=== PATIENT | female | born 2000 | race Caucasian/White ===

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

== ENCOUNTER 2022-05-13 10:32 | Outpatient (REF) | payer MEDICAID, SELFPAY | END 2022-05-13 10:33 | disposition home or self-care (01) | LOC: LBN 10:32 | PROVIDERS: PCP Nurse Practitioner Family; Visit Provider Physician Assistant | DX: J02.9 Acute pharyngitis, unspecified (principal) | CPT/HCPCS: 87070 ==

== ENCOUNTER 2022-07-13 10:42 | Outpatient (REF) | payer MEDICAID, SELFPAY ==
[2022-07-14 13:59] LABS: Chlamydia Result Negative (Negative); GC Result Negative (Negative)
== END 2022-07-13 10:43 | disposition home or self-care (01) ==
LOC: LBN 10:42
PROVIDERS: PCP Nurse Practitioner Family; Visit Provider Nurse Practitioner Women's Health
DX: Z11.3 Encounter for screening for infections with a predominantly sexual mode of transmission (principal)
CPT/HCPCS: 87491; 87591

== ENCOUNTER 2023-03-29 14:12 | Emergency (ER) | payer MEDICAID, SELFPAY ==
[2023-03-29 14:25] VITALS: BP 129/64; PULSE 96; RESP 16; TEMP 37.8; O2SAT 98
[2023-03-29 15:24] VITALS: BP 102/71; PULSE 98; RESP 18; TEMP 37.1; O2SAT 98
--- NOTE | 2023-03-29 15:38 | ED.GENADUL_ITS ---
Discharge Plan Disposition Patient Disposition: Home Condition: Stable Discharge Details Clinical Impression: Nausea, vomiting and diarrhea Primary Care Provider: Sena Olmstead ED Provider: Dorothy Gibson Home Meds and New Rx's Prescriptions: New ondansetron 4 mg tablet,disintegrating 4 mg PO QID PRNQty: 10 0RF No Action Kyleena 17.5 mcg/24 hrs (5 yrs) 19.5 mg intrauterine device 1 device intrauterine ONCE Rx Instructions: as a single dose multivitamin 1 EACH capsule 1 ea PO DAILY Discharge Instructions Instructions: Acute Nausea and Vomiting (ED) Additional Instructions: Return to ED for worsening pain, migration of pain to right lower abdomen, high fevers, or intractable vomiting. Stand Alone Forms: Work Release Referrals: Sena Olmstead, PATENT LEATHER SORTER [Primary Care Provider] - 3 days Discharge Data Discharge Physician: Dorothy Gibson Medical Decision Making 22-year-old female presents for evaluation nausea, vomiting, diarrhea. On examination abdominal exam is benign. She does have sick contacts similar symptoms. Will check laboratory studies, hydrate with IV fluids, give IV Zofran. Labs unremarkable. Patient?s symptoms improved after ED medication. Able to tolerate p.o. I abdominal exam is non-acute and patient is in no distress. Do not feel that imaging is warranted at this time. Will discharge home. Patient to push fluids and advance diet as tolerated. Patient is to follow up with PMD. Patient understands that symptoms may worsen and the testing in the emergency department does not rule out the early stages of a possible surgical condition. Will return to ED for worsening pain, migration of pain to right lower abdomen, high fevers, or intractable vomiting. HPI General Date/Time Provider Initiated Documentation: 03/29/23 15:15 . HPI Narrative: 22-year-old female presents for evaluation of nausea, vomiting, diarrhea. Patient states that she felt well yesterday. She had [employer] food for dinner last night. She woke up around 6:30 in the morning and began having nausea, vomi ting, diarrhea. She has had multiple episodes throughout the day. She denies any abdominal pain. No fevers or chills. No cough or cold. No chest pain or shortness of breath. Last menstrual cycle was at the beginning of the month. She does not believe she is but states that there is a possibility. Denies any increased urinary frequency, dysuria, gross hematuria. Her significant other has similar symptoms. Related Data Home Medications Medication Instructions Recorded Confirmed multivitamin 1 ea PO DAILY 03/07/17 03/29/23 levonorgestrel 17.5 mcg/24 hrs 1 device intrauterine ONCE 04/13/20 03/29/23 (5yrs) 19.5mg intrauterine device (Kyleena) ondansetron 4 mg disintegrating 4 mg PO QID PRN #10 tabs 03/29/23 tablet Previous Rx's Medication Instructions Recorded ondansetron 4 mg disintegrating 4 mg PO QID PRN #10 tabs 03/29/23 tablet Allergies Allergy/AdvReac Type Severity Reaction Status Date / Time No Known Allergies Allergy Verified 03/29/23 15:33 General Stated Complaint: Nausea/Vomit/Diar MEERA: 4 Review of Systems Narrative: Remainder of review of systems otherwise negative septa in the HPI x 10. PFSH All Active Problems (Updated 03/29/23 @ 15:40 by Dorothy Gibson MD) Nausea, vomiting and diarrhea (Acute) IUD surveillance (Acute 04/14/20) Kyleena Chronic constipation (Acute) Annual physical exam (Acute) Idiopathic scoliosis (Chronic 01/15/13) Thoracic; 6 degrees Left Migraine (Chronic 01/10/17) Initiated POPs May 2018 Pediatric body mass index (BMI) of 85th percentile to less than 95th percentile for age (Chronic 04/13/17) Primary dysmenorrhea (Chronic 04/11/14) [facility] Treatment with progesterone only contraceptive because of HX of migraines. Routine child health exam (Chronic 01/15/13) Medical History Idiopathic scoliosis Primary dysmenorrhea Left ACL tear Surgical History Repair, ACL (03/13/17) left Family History Mother Healthy adult Grandfather Hearing loss Neoplasm MGF-liver/bone Grandmother Essential hypertension MGM Heart disease MGM- [place] Stroke MGM- stroke Social History Smoking/Tobacco Use Status: Former Tobacco Use Smoking risk assessment performed?: Yes Alcohol Intake: current Alcohol Intake frequency: holidays/special occasions only Drug use: Occasionally Substance use type: does not use and marijuana Adopted: No Caregiver/Support person: No Foster care: No Household members: other Details: college student- home on school breaks Housing: house Communication Needs: None Education Level: college Details: - college freshman Pets and animals: Yes Pets and animals: cat(s) Sexually active: Yes (hasn't gotten to control) Seatbelt use: always Helmet use: Yes Helmet use: always Water heater temp set <120 deg: Yes Fire extinguisher in home: Yes Carbon monox detector in home: Yes Additional Social history: unable to ask d/t lack of privacy Female Reproductive History Menstrual control method: progestin IUCD History History 0 Para Hx # Term Pregnancies Multiple births Hx # Pregnancies Ectopic pregnancies AB induced Hx Number of Living Children AB spontaneous Exam Narrative Exam Narrative: General: non-toxic, no respiratory distress, comfortable HEENT: normocephalic, atraumatic, lids and lashes normal, PERRL, EOMI, anicteric sclera, no conjunctival injection, moist oral mucosa Card: regular rate and rhythm, S1S2, no murmurs, rubs, or gallops Lungs: good air entry, clear to auscultation bilaterally. no wheezes, rales, rhonchi, or retractions Abd: soft, non-tender, non-distended, normal bowel sounds, no rebound or guarding, no peritoneal signs, no CVAT Musculoskeletal: full range of motion of arms and legs, no tenderness to palpation. no clubbing, cyanosis, or edema Neurologic: appropriate for age, strength normal Psych: alert and oriented Skin: no petechiae, no lesions, warm and dry Course Vital Signs Vital signs: Vital Signs Temperature 37.8 C H 03/29/23 14:25 Pulse 96 H 03/29/23 14:25 Respiratory Rate 16 03/29/23 14:25 Blood Pressure 129/64 03/29/23 14:25 Pulse Oximetry 98 03/29/23 14:25 Temperature 37.1 C 03/29/23 15:24 Temperature Source Skin 03/29/23 15:24 Pulse 98 H 03/29/23 15:24 Respiratory Rate 18 03/29/23 15:24 Respiratory Effort Normal 03/29/23 15:32 Blood Pressure 102/71 03/29/23 15:24 Pulse Oximetry 98 03/29/23 15:24 Oxygen Delivery Method Room Air 03/29/23 15:24 Oxygen Flow Rate 0 03/29/23 15:24
[2023-03-29] MEDS: Normal Saline 1,000 ML 1000 ML IV (15:39)
[2023-03-29] MEDS: Ondansetron 4 MG/2 ML VIAL IVP (15:40)
[2023-03-29 15:41] VITALS: BP 102/71; PULSE 98; RESP 18; TEMP 37.1; O2SAT 98
[2023-03-29 15:42] LABS: Abs Immature Grans 0.03 10^3/uL (0.0-0.06); Absolute Basophil Count 0.03 10^3/uL (0.0-0.2); Absolute Eosinophil Count 0.02 10^3/uL (0.0-0.7); Absolute Lymphocyte Count 0.35 10^3/uL (1.2-3.4); Absolute Monocyte Count 0.23 10^3/uL (0.1-0.8); Absolute Neutrophil Count 10.26 10^3/uL (1.2-6.7); Basophils % 0.3; Eosinophils % 0.2; HCT 41.8 % (36.0-46.0); HGB 14.3 g/dL (11.2-15.7); Immature Grans % 0.3; Lymphocytes % 3.2; MCH 31.2 pg (27.0-33.0); MCHC 34.2 % (32.0-36.0); MCV 91 fL (80-95); MPV 10.1 fL (8.0-11.0); Monocytes % 2.1; Neutrophils % 93.9; Platelet Count 186 10^3/uL (130-400); RBC 4.58 10^6/uL (3.93-5.22); RDW 11.4 % (11.7-14.6); RDW-SD 38.4 fL; WBC 10.93 10^3/uL (4.4-10.8)
[2023-03-29 15:57] LABS: ALT 22 U/L (14-59); AST 14 U/L (15-37); Albumin 4.2 g/dL (3.4-5.0); Alkaline Phosphatase 52 U/L (46-116); BUN 14 mg/dL (7-18); Bilirubin, Total 0.8 mg/dL (0.2-1.0); CREATININE 0.8 mg/dL (0.55-1.02); Calcium 8.9 mg/dL (8.5-10.1); Chloride 103 mmol/L (98-107); Estimated GFR 108.11 (mL/min/1.73m2); Glucose 115 mg/dL (74-106); Lipase 40 U/L (16-77); Potassium 3.8 mmol/L (3.5-5.1); Sodium 137 mmol/L (136-145); Total Protein 7.6 g/dL (6.4-8.2)
[2023-03-29 16:06] LABS: HCG Qual (Serum) Negative
[2023-03-29 16:26] VITALS: BP 121/82; PULSE 73; RESP 16; TEMP 36.9; O2SAT 98
== END 2023-03-29 16:29 | disposition home or self-care (01) ==
PROVIDERS: Registered Nurse Emergency; Emergency Provider Emergency Medicine Emergency Medical Services; PCP Nurse Practitioner Family
DX: R11.2 Nausea with vomiting, unspecified (principal); R52 Pain, unspecified; R53.83 Other fatigue; R19.7 Diarrhea, unspecified
CPT/HCPCS: 36415; 80053; 83690; 96361; 96374; 99284; 84703; 85025; J2405

== ENCOUNTER 2023-05-29 20:02 | Emergency (ER) | payer MEDICAID, SELFPAY ==
[2023-05-29 20:07] VITALS: BP 132/83; PULSE 86; RESP 17; TEMP 36.9; O2SAT 98
--- NOTE | 2023-05-29 20:16 | ED.GENADUL_ITS ---
HPI General Mode of arrival: ambulatory . Date/Time Provider Initiated Documentation: 05/29/23 20:03 . Limitations to Documentation: no limitations . Information obtained by: patient . History of Present Illness 22 year old F presents to the emergency department with the chief complaint of bloody bowel movements, described as moderate, Patient started experiencing this day(s) (5) and it has been intermittent. No relieving factors improve symptom(s), No exacerbating factors reported . Patient notes denies chest pain, fever/chills, nausea/vomiting and shortness of breath. Patient did receive the following treatments prior to arrival, none Related Data Home Medications Medication Instructions Recorded Confirmed multivitamin 1 ea PO DAILY 03/07/17 05/29/23 levonorgestrel 17.5 mcg/24 hrs 1 device intrauterine ONCE 04/13/20 05/29/23 (5yrs) 19.5mg intrauterine device (Kyleena) Allergies Allergy/AdvReac Type Severity Reaction Status Date / Time No Known Allergies Allergy Verified 03/29/23 15:33 General Stated Complaint: Abd Prob MEERA: 3 Review of Systems All systems reviewed & are unremarkable except as noted in HPI and below Constitutional Constitutional: Denies chills, Denies fever(s) and Denies weakness Cardiovascular Cardiovascular: Denies chest pain and Denies dyspnea Respiratory Respiratory: Denies cough and Denies dyspnea Gastrointestinal Gastrointestinal: Reports hematochezia, Denies nausea and Denies vomiting Musculoskeletal Musculoskeletal: Denies joint swelling Neurologic Neurologic: Denies weakness Exam Const General: no acute distress Orientation: alert HENDE Head: normal to inspection Ears: external ears normal General nose exam: external nose normal Mouth: moist mucous membranes Eyes General: appearance normal, both eyes and all related structures Neck Neck: normal visual inspection Resp Effort & Inspection: normal respiratory effort and able to speak in complete sentences Cardio Rate: regular rate GI Palpation: soft and nontender Skin General skin exam: no rashes or lesions noted Neuro General: patient alert and patient oriented x3 Extrem General: normal to inspection Psych Mental Status: mental status grossly normal Course Vital Signs Vital signs: Vital Signs Temperature 36.9 C 05/29/23 20:07 Pulse 86 05/29/23 20:07 Respiratory Rate 17 05/29/23 20:07 Blood Pressure 132/83 05/29/23 20:07 Pulse Oximetry 98 05/29/23 20:07 Temperature 36.9 C 05/29/23 20:07 Temperature Source Temporal Artery Scan 05/29/23 20:07 Pulse 86 05/29/23 20:07 Respiratory Rate 17 05/29/23 20:07 Blood Pressure 132/83 05/29/23 20:07 Blood Pressure Position Sitting 05/29/23 20:07 Pulse Oximetry 98 05/29/23 20:07 Oxygen Delivery Method Room Air 05/29/23 20:07 Oxygen Flow Rate 0 05/29/23 20:07 Medical Decision Making 22-year-old female with no chronic medical problems, comes in with 5 days of intermittent bright red blood per rectum. She states she is otherwise been feeling well though has had some intermittent lower abdominal cramping. She denies fevers, vomiting, family history of any known gastrointestinal disorders. She denies any diarrhea and states no constipation. She is alert and oriented x 4 on arrival speaking clearly in no distress, she has no abdominal tenderness on exam. Suspect internal hemorrhoids versus possibly inflammatory bowel disease. Given lack of abdominal tenderness, and stable vital signs do not feel any imaging of her abdomen is indicated. Will check a CBC and reassess. CBC unremarkable, patient stable. No abdominal tenderness. I performed rectal exam with manufacturing engineering technician Sruthi Monteiro at bedside for welder setter electron beam machine, no external abnormalities on rectal exam no current blood here. Feel she is stable for discharge, will provide referral to see general surgery within a week to discuss possible colo noscopy. Return precautions given Differential Diagnosis Differential Diagnosis: Internal hemorrhoids, irritable bowel syndrome Quality:SDOH Health Related Social Needs: No Data to Display PFSH All Active Problems (Updated 05/29/23 @ 20:47 by Satya Perez MD) BRBPR (bright red blood per rectum) (Acute) IUD surveillance (Acute 04/14/20) Kyleena Chronic constipation (Acute) Annual physical exam (Acute) Idiopathic scoliosis (Chronic 01/15/13) Thoracic; 6 degrees Left Migraine (Chronic 01/10/17) Initiated POPs May 2018 Pediatric body mass index (BMI) of 85th percentile to less than 95th percentile for age (Chronic 04/13/17) Primary dysmenorrhea (Chronic 04/11/14) [facility] Treatment with progesterone only contraceptive because of HX of migraines. Routine child health exam (Chronic 01/15/13) Medical History Idiopathic scoliosis Primary dysmenorrhea Left ACL tear Surgical History Repair, ACL (03/13/17) left Family History Mother Healthy adult Grandfather Hearing loss Neoplasm MGF-liver/bone Grandmother Essential hypertension MGM Heart disease MGM- [place] Stroke MGM- stroke Social History Smoking/Tobacco Use Status: Former Tobacco Use Smoking risk assessment performed?: Yes Alcohol Intake: current Alcohol Intake frequency: holidays/special occasions only Drug use: Occasionally Substance use type: does not use and marijuana Adopted: No Caregiver/Support person: No Foster care: No Household members: other Details: college student- home on school breaks Housing: house Communication Needs: None Education Level: college Details: - college freshman Pets and animals: Yes Pets and animals: cat(s) Sexually active: Yes (hasn't gotten to control) Seatbelt use: always Helmet use: Yes Helmet use: always Water heater temp set <120 deg: Yes Fire extinguisher in home: Yes Carbon monox detector in home: Yes Do you feel safe at home: Yes Do you feel safe in your relationship?: Yes Additional Social history: unable to ask d/t lack of privacy Female Reproductive History Menstrual control method: progestin IUCD History History 0 Para Hx # Term Pregnancies Multiple births Hx # Pregnancies Ectopic pregnancies AB induced Hx Number of Living Children AB spontaneous Discharge Plan Disposition Patient Disposition: Home Condition: Stable Discharge Details Clinical Impression: BRBPR (bright red blood per rectum) Primary Care Provider: Sena Olmstead ED Provider: Sayta Perez Meds and New Rx's Prescriptions: Continued Kyleena 17.5 mcg/24 hrs (5 yrs) 19.5 mg intrauterine device 1 device intrauterine ONCE Rx Instructions: as a single dose multivitamin 1 EACH capsule 1 ea PO DAILY Discharge Instructions Additional Instructions: I have placed you on the follow-up list to see general surgery, you should be contacted with an appointment Your blood count today was normal, you likely have an internal hemorrhoid that is intermittently bleeding. If it continues you may need to have a colonoscopy with general surgery. If you have severe abdominal pain, shortness of breath, or feel more ill return to the emergency department for reexamination
[2023-05-29 20:47] VITALS: BP 132/83; PULSE 86; RESP 14; TEMP 36.9; O2SAT 98
[2023-05-29 20:53] LABS: HCT 37.7 % (36.0-46.0); HGB 12.7 g/dL (11.2-15.7); MCH 30.7 pg (27.0-33.0); MCHC 33.7 % (32.0-36.0); MCV 91 fL (80-95); MPV 9.6 fL (8.0-11.0); Platelet Count 222 10^3/uL (130-400); RBC 4.14 10^6/uL (3.93-5.22); RDW 11.4 % (11.7-14.6); RDW-SD 38.2 fL; WBC 7.57 10^3/uL (4.4-10.8)
[2023-05-29 21:07] VITALS: BP 130/78; PULSE 80; RESP 14; O2SAT 98
--- NOTE | 2023-05-30 04:40 | NUR.NOTE ---
Pt placed on care management referral list for bloody stools to be seen [facility] per LORNA Olmos.
== END 2023-05-29 21:12 | disposition home or self-care (01) ==
PROVIDERS: Emergency Provider Emergency Medicine; PCP Nurse Practitioner Family
DX: K62.5 Hemorrhage of anus and rectum (principal)
CPT/HCPCS: 36415; 85027; 99283

== ENCOUNTER 2023-06-01 10:54 | Outpatient (CLI) | payer MEDICAID, SELFPAY ==
[2023-06-01 11:43] LABS: C-Reactive Protein < 0.50 mg/dL (<or=0.5)
[2023-06-02 10:54] LABS: IgA 150 mg/dL (85-499); Interpretation (See Note); Tissue Transglutaminase IgA <4.0 CU (<20.0)
[2023-06-02 14:24] LABS: ANCA Interpretation Negative (Negative)
[2023-06-02 14:27] LABS: ANA Interpretation Negative (Negative)
== END 2023-06-01 10:55 | disposition home or self-care (01) ==
PROVIDERS: PCP Nurse Practitioner Family; Visit Provider Surgery
DX: K62.5 Hemorrhage of anus and rectum (principal); K59.09 Other constipation
CPT/HCPCS: 36415; 82784; 83516; 86255; 86038; 86140

== ENCOUNTER 2023-06-04 12:27 | Outpatient (REF) | payer MEDICAID, SELFPAY ==
[2023-06-07 18:31] LABS: Calprotectin <50.0 mcg/g
== END 2023-06-04 12:28 | disposition home or self-care (01) ==
LOC: LBN 12:27
PROVIDERS: PCP Nurse Practitioner Family; Visit Provider Surgery
DX: K59.09 Other constipation (principal); K62.5 Hemorrhage of anus and rectum; K92.1 Melena
CPT/HCPCS: 83993

== ENCOUNTER 2023-06-04 18:55 | Emergency (ER) | payer MEDICAID, SELFPAY ==
[2023-06-04 18:58] VITALS: BP 121/71; PULSE 88; RESP 15; TEMP 36.6; O2SAT 97
[2023-06-04 19:02] VITALS: BP 121/71; PULSE 88; RESP 15; TEMP 36.6; O2SAT 97
--- NOTE | 2023-06-04 19:03 | ED.GENADUL_ITS ---
HPI General Date/Time Provider Initiated Documentation: 06/04/23 19:02 . HPI Narrative: 22 year-old female presents to ED today by POV/ambulating with a chief complaint of bloody stool, generalized abdominal pain with onset 6 days ago, seen by general surgeon who recommended against colonoscopy, no mention of hemorrhoids. Quality described as generalized abdominal discomfort, denies past ABD surgical problems, no radiation to high fever, hematemesis, shortness of breath, endorses weakness. Severity is described as 7/10. Palliating factors include nothing specific attempted. Provoking factors include nothing specific. Patient not anticoagulated. Related Data Home Medications Medication Instructions Recorded Confirmed multivitamin 1 ea PO DAILY 03/07/17 06/04/23 levonorgestrel 17.5 mcg/24 hrs 1 device intrauterine ONCE 04/13/20 06/04/23 (5yrs) 19.5mg intrauterine device (Kyleena) Allergies Allergy/AdvReac Type Severity Reaction Status Date / Time No Known Allergies Allergy Verified 06/01/23 09:22 General Stated Complaint: Abd Prob MEERA: 3 Review of Systems All systems reviewed & are unremarkable except as noted in HPI and below Exam Narrative Exam Narrative: GENERAL APPEARANCE: Well-nourished, non-toxic, awake and alert, atraumatic, no acute distress. SKIN: Warm, pink, dry, intact, without rashes/lesions/ulcerations. HEAD: Normocephalic, atraumatic, normal hair distribution for gender/age. EYES: Pupils PERRLA, EOMs intact without nystagmus, normal conjunctiva, no exudates on lids/lashes. ENT: Nares patent, no circumoral cyanosis, no facial swelling NECK: Supple, trachea midline, painless cervical ROM. LUNGS/CHEST: Lungs CTA bilaterally- no rhonchi/rales/wheezes diffusely, non- labored respirations, normal A/P diameter, symmetrical expansion, no chest wall deformity HEART (CV/PV): Regular rate and rhythm without murmur, no peripheral edema, no JVD. ABDOMEN: Soft, non-distended, no guarding, epigastric and RLQ abdominal tenderness, no rebound tenderness/rovsing's, no CVA tenderness to percussion. MSK: Normal ROM, no swelling/deformity to bilateral UEs or LEs, moving all extremities without weakness, no cyanosis, spine midline without tenderness, normal curvature. NEURO: Mental Status AAOx4 - alert to person, place, time, events No facial droop, no forehead involvement. Motor: No focal weakness - strength 5/5 in bilateral UEs and LEs, proximal and distal, symmetric. Sensory: sensation intact to light touch globally. Gait normal: patient ambulated without ataxia into ED room. PSYCH: euthymic, cooperative, pleasant, appropriate speech Course Vital Signs Vital signs: Vital Signs Temperature 36.6 C 06/04/23 18:58 Pulse 88 06/04/23 18:58 Respiratory Rate 15 06/04/23 18:58 Blood Pressure 121/71 06/04/23 18:58 Pulse Oximetry 97 06/04/23 18:58 Temperature 36.6 C 06/04/23 18:58 Temperature Source Tympanic 06/04/23 18:58 Pulse 88 06/04/23 18:58 Respiratory Rate 15 06/04/23 18:58 Blood Pressure 121/71 06/04/23 18:58 Blood Pressure Position Sitting 06/04/23 18:58 Pulse Oximetry 97 06/04/23 18:58 Oxygen Delivery Method Room Air 06/04/23 18:58 Oxygen Flow Rate 0 06/04/23 18:58 Pain Level 7 06/04/23 18:58 Medical Decision Making This dictation utilizes [id number] dictation software and may contain unedited grammatical errors. 22 y/o F presents to ED today with a chief complaint of nausea/vomiting, diarrhea, intermittent bloody stools for the past 6 days, seen by General Surgery with negative hemorrhoid exam, not recommended for colonoscopy, having diffuse mild abdominal pain. Patients' medical history: chronic constipation. Family and social history: noncontributory. Pertinent exam findings / vital signs include epigastric and RLQ tenderness, no peritoneal signs, patient discussed ALIRIO- had recent would prefer not to repeat tonight if labs OK for significant anemia, stable nontoxic vitals, benign cardiopulmonary exam. Differential / pathologies of concern include gastroenteritis, GI bleeding, infectious diarrhea, appendicitis, biliary colic, pancreatitis. Diagnostic studies of: -CBC, CMP, Lactate & procalcitonin, Lipase, UA, CRP/ESR, Upreg, Mg++, CT ABD/Pelvis w Contrast. -CBC shows no leukocytosis, no anemia- do not suspect GI hemorrhage -CMP no major electrolyte abnormalities -UA no signs of infection -Upreg neg -Mg++ wnl -Lactate WNL, procalcitonin neg- do not suspect sepsis -lipase WNL -inflammatory markers neg, nonspecific -CT ABD/Pelvis shows cholelithiasis without concern for cholecystitis, shows possible infectious enteritis which fits with history Interventions of: -Trial of 3 days 500mg Azithromycin for infectious diarrhea, recommend colonoscopy if failure to improve. ED Course/Assessment/Plan: 22-year-old female presents with intermittent bright red blood per rectum with bowel movements and diarrhea for the past 6 days, has abdominal pain and nausea vomiting, this is consistent with a possible infectious diarrhea, reasonable to trial antibiotics for infectious diarrhea, she was seen by general surgery and had a rectal exam without concerning findings, if she fails to improve with empiric antibiotic treatment I recommend that she represent to surgery office for likely colonoscopy with her history of chronic constipation and now bright red blood per rectum, inflammatory markers are negative for inflammatory bowel disease, no findings to suggest Crohn's disease, patient was comfortable with this disposition and will return for any acute worsening. Findings not consistent with sepsis, inflammatory bowel disease, UTI, cholecystitis, pancreatitis, cholangitis, perforated viscus or diverticulitis with abscess or microperforation, GI hemorrhage. Disposition of Infectious Enteritis. Patient verbalized understanding of the plan and return to ED criteria and engaged in shared decision making. Medical Records Medical records reviewed: Yes I reviewed the patient's medical records. Imaging Data Radiologic Study: Attestation: I personally reviewed and interpreted this imaging study as follows: Imaging: CT Scan Radiologist's impression: Exam: CT Abdomen And Pelvis With Contrast Exam date and time: 06/04/2023 8:28 PM Age: 22 years old Clinical indication: Generalized; Patient HX: Diffuse abdominal pain, bloody stools TECHNIQUE: Imaging protocol: Computed tomography of the abdomen and pelvis with contrast. Radiation optimization: All CT scans at this facility use at least one of these dose optimization techniques: automated exposure control; mA and/or kV adjustment per patient size (includes targeted exams where dose is matched to clinical indication); or iterative reconstruction. Contrast material: OMNIPAQUE 350; Contrast volume: 100 ml; Contrast route: INTRAVENOUS (IV); COMPARISON: CR XR ABDOMEN FLAT UPRIGHT 06/25/2019 9:49 PM FINDINGS: Lungs: Lung bases are clear. Liver: Unremarkable. No mass. Gallbladder and bile ducts: Cholelithiasis. No obvious pericholecystic inflammatory stranding. No biliary dilation. Pancreas: Unremarkable. No ductal dilation. Spleen: Unremarkable. No splenomegaly. Adrenal glands: Normal. No mass. Kidneys and ureters: Symmetric renal enhancement without mass. No hydronephrosis. Ureters are normal in course and caliber. Stomach and bowel: Stomach is distended by low-attenuation material without focal gastric mural thickening. No evidence of bowel obstruction. There is mild scattered mural/fold thickening of the small bowel with increased prominence of the mesenteric vasculature. No focal colonic mural thickening. Appendix: No evidence of acute appendicitis. Intraperitoneal space: No free fluid in the abdomen or pelvis. No free air. Vasculature: No abdominal aortic aneurysm or evidence of dissection. Lymph nodes: No pathologically enlarged lymph nodes. Urinary bladder: Mild diffuse thickening of the bladder wall is nonspecific. Reproductive: IUD within the central uterus in expected location. Bones/joints: Unremarkable. No acute fracture. Soft tissues: No focal abnormality. IMPRESSION: 1. Mild scattered mural/fold thickening of the small bowel. Correlate with history/symptoms to suggest acute infectious versus inflammatory enteritis. 2. Cholelithiasis. 3. Mild diffuse thickening of the bladder wall may be related to incomplete distension versus acute cystitis. Correlate with urinalysis. Dictated and Authenticated by: Adryan Erickson MD. Ordering:DARCY Truong MD Lab Data Lab results reviewed: Yes I reviewed the patient's lab results. Labs: Laboratory Tests Range/Units 06/04/23 06/04/23 19:35 20:18 WBC (4.4-10.8) 10^3/uL 10.17 RBC (3.93-5.22) 10^6/uL 4.70 Hgb (11.2-15.7) g/dL 14.5 Hct (36.0-46.0) % 42.5 MCV (80-95) fL 90 MCH (27.0-33.0) pg 30.9 MCHC (32.0-36.0) % 34.1 RDW (11.7-14.6) % 11.2 L Plt Count (130-400) 10^3/uL 224 MPV (8.0-11.0) fL 9.9 Immature Gran % 0.3 Neutrophils % 76.8 Lymphocytes % 18.1 Monocytes % 3.7 Eosinophils % 0.7 Basophils % 0.4 Nucleated RBC % (0.0-0.3) % 0.0 Absolute Neutrophils (1.2-6.7) 10^3/uL 7.81 H Absolute Lymphocytes (1.2-3.4) 10^3/uL 1.84 Absolute Monocytes (0.1-0.8) 10^3/uL 0.38 Absolute Eosinophils (0.0-0.7) 10^3/uL 0.07 Absolute Basophils (0.0-0.2) 10^3/uL 0.04 ESR (0-20) mm/hr 4 PT (9.1-11.1) sec 10.8 INR (0.9-1.1) 1.1 APTT (23.6-32.8) sec 26.1 VBG Lactate (0.6-1.4) mmol/L 0.6 Sodium (136-145) mmol/L 142 Potassium (3.5-5.1) mmol/L 3.7 Chloride (98-107) mmol/L 105 Carbon Dioxide (21.0-32.0) mmol/L 26.2 Anion Gap (3-11) mmol/L 10.8 BUN (7-18) mg/dL 13 Creatinine (0.55-1.02) mg/dL 0.8 Est GFR (CKD-EPI 2020) (mL/min/1.73m2) 108.11 Glucose (74-106) mg/dL 97 Calcium (8.5-10.1) mg/dL 9.2 Magnesium (1.8-2.4) mg/dL 1.9 Total Bilirubin (0.2-1.0) mg/dL 0.5 Conjugated Bilirubin (0.0-0.2) mg/dL 0.1 AST (15-37) U/L 16 ALT (14-59) U/L 17 Alkaline Phosphatase (46-116) U/L 54 Troponin I (< or =60) ng/L < 50 C-Reactive Protein (<or=0.5) mg/dL < 0.50 Total Protein (6.4-8.2) g/dL 8.0 Albumin (3.4-5.0) g/dL 4.5 Lipase (16-77) U/L 40 Procalcitonin ng/mL < 0.1 Urine Color (Yellow) Yellow Urine Clarity (Clear) Clear Urine pH (5-8) 7.0 Ur Specific [place] (1.005-1.025) 1.020 Urine Protein (Neg-Trace) mg/dL Negative Urine Ketones (Negative) mg/dL Negative Urine Blood (Negative) Negative Urine Nitrite (Negative) Negative Urine Bilirubin (Negative) Negative Urine Urobilinogen (Up to 0.2) mg/dL 0.2 Ur Leukocyte Esterase (Negative) Negative Urine Glucose (Negative) mg/dL Negative Quality:SDOH Health Related Social Needs: No Data to Display PFSH All Active Problems (Updated 06/04/23 @ 21:49 by LORNA Keane) Infectious enteritis (Acute) Chronic idiopathic constipation (Acute) Bloody stool (Acute) BRBPR (bright red blood per rectum) (Acute) IUD surveillance (Acute 04/14/20) Kyleena Chronic constipation (Acute) Annual physical exam (Acute) Idiopathic scoliosis (Chronic 01/15/13) Thoracic; 6 degrees Left Migraine (Chronic 01/10/17) Initiated POPs May 2018 Pediatric body mass index (BMI) of 85th percentile to less than 95th percentile for age (Chronic 04/13/17) Primary dysmenorrhea (Chronic 04/11/14) [facility] Treatment with progesterone only contraceptive because of HX of migraines. Routine child health exam (Chronic 01/15/13) Medical History Idiopathic scoliosis Primary dysmenorrhea Left ACL tear Surgical History Repair, ACL (03/13/17) left Family History Mother Healthy adult Grandfather Hearing loss Neoplasm MGF-liver/bone Grandmother Essential hypertension MGM Heart disease MGM- [place] Stroke MGM- stroke Social History Smoking/Tobacco Use Status: Former Tobacco Use Smoking risk assessment performed?: Yes Alcohol Intake: current Alcohol Intake frequency: holidays/special occasions only Drug use: Occasionally Substance use type: does not use and marijuana Adopted: No Caregiver/Support person: No Foster care: No Household members: other Details: college student- home on school breaks Housing: house Communication Needs: None Education Level: college Details: - college freshman Pets and animals: Yes Pets and animals: cat(s) Sexually active: Yes (hasn't gotten to control) Seatbelt use: always Helmet use: Yes Helmet use: always Water heater temp set <120 deg: Yes Fire extinguisher in home: Yes Carbon monox detector in home: Yes Do you feel safe at home: Yes Do you feel safe in your relationship?: Yes Additional Social history: unable to ask d/t lack of privacy Female Reproductive History Menstrual control method: progestin IUCD History History 0 Para Hx # Term Pregnancies Multiple births Hx # Pregnancies Ectopic pregnancies AB induced Hx Number of Living Children AB spontaneous Discharge Plan Disposition Patient Disposition: Home Condition: Stable Discharge Details Clinical Impression: Infectious enteritis Primary Care Provider: Sena Olmstead ED Provider: Alexi Olmos Home Meds and New Rx's Prescriptions: Continued Kyleena 17.5 mcg/24 hrs (5 yrs) 19.5 mg intrauterine device 1 device intrauterine ONCE Rx Instructions: as a single dose multivitamin 1 EACH capsule 1 ea PO DAILY Discharge Instructions Instructions: Azithromycin (By mouth), Enteritis (ED) Additional Instructions: You were seen in the emergency department for your intermittent bloody stools with diarrhea, there is a mild sign on your CTA of your body reacting to a possible small bowel infection called enteritis. I think it is reasonable as this was been going on for some time now to try empiric antibiotics I am sending home with azithromycin for 3 days, take one of the 500 mg tablets once per day for the next 3 days. Everything else was reassuring for any autoimmune conditions of the abdomen, severe infection, sepsis all of this was negative on our workup and there was no acute emergent pathology seen on CT exam. Should this not cure your intermittent bloody stools and diarrhea I think you should receive a colonoscopy. Stand Alone Forms: Work Release Referrals: Sena Olmstead, [employer] TRUING INSPECTOR [Primary Care Provider] - Discharge Data Discharge Date/Time-TO BE ENTERED AT DEPARTURE: 06/04/23 22:09
--- NOTE | 2023-06-04 19:30 | DI.CT_ITS ---
Exam(s) CT ABDOMEN PELVIS W EXAM: CT ABDOMEN PELVIS W CLINICAL HISTORY: diffuse abdominal pain, bloody stools TECHNIQUE: Imaging Protocol: Axial computed tomography images with coronal and sagittal reformatted images were created and reviewed. CONTRAST MATERIAL: Intravenous: Omnipaque 350 Contrast volume:100 mL Oral: No COMPARISON: No exams were available for comparison FINDINGS: ABDOMEN: Lung Bases: Normal where visualized. Liver: Normal density. There is a tiny hypodensity in the caudal aspect of the right lobe of the live r. It is too small for further characterization. No suspicious hepatic lesions are seen. Portal, Superior Mesenteric, and Splenic Veins: Unremarkable. Gallbladder and Biliary Tract: Gallstone. No biliary ductal dilatation. Pancreas: Normal density, no abnormal calcifications or inflammatory process. Spleen: Normal. Adrenals: No masses seen. Kidneys: Normal size, contour and axis. No radiodense stones or obstructive uropathy. No masses seen. Abdominal Aorta: Abdominal portion non-dilated. Bowel: There are fluid-filled loops of small bowel and proximal colon which can be seen with a diarrh eal illness/enteritis. There is mild thickening of the wall of the distal stomach. There is a muriel l appendix. There is no evidence of bowel obstruction. Peritoneal Cavity: No ascites, collection or mesenteric inflammatory response. No free air. Lymph Nodes: Within normal limits. Bones: Within normal limits for the patient's age. Soft Tissues: Unremarkable. PELVIS: Bladder: There is mild diffuse thickening of the wall of the urinary bladder. Reproductive Organs: There is an IUD which appears in good position. Lymph Nodes: Within normal limits. Bones: Within normal limits for the patient's age. IMPRESSION: 1. Fluid-filled loops of small bowel and colon which can be seen with a diarrheal illness/enterocolit is. Please correlate clinically. 2. Mild diffuse thickening of the wall of the urinary bladder. This may be due to underdistention bu t cystitis cannot be excluded. 3. Question of mild thickening of the wall of the distal stomach. Gastritis cannot be excluded. 4. Cholelithiasis. No biliary ductal dilatation. RADIATION DOSE DELIVERED: 947.33mGy.cm Total DLP DATA REPOSITORY: All CT scans at this facility are submitted to the National Radiology Data Registry (NRDR) Dose Index Registry (DIR) with the [employer] (A[employer]). RADIATION OPTIMIZATION: All CT scans at this facility use at least one of these dose optimization te chniques: automated exposure control; mA and/or kV adjustment per patient size (includes targeted exa ms where dose is matched to clinical indication); or iterative reconstruction.
[2023-06-04] MEDS: Normal Saline 1,000 ML 1000 ML IV (19:56)
[2023-06-04] MEDS: Ondansetron 4 MG/2 ML VIAL IVP (19:57)
[2023-06-04 20:00] LABS: Abs Immature Grans 0.03 10^3/uL (0.0-0.06); Absolute Basophil Count 0.04 10^3/uL (0.0-0.2); Absolute Eosinophil Count 0.07 10^3/uL (0.0-0.7); Absolute Lymphocyte Count 1.84 10^3/uL (1.2-3.4); Absolute Monocyte Count 0.38 10^3/uL (0.1-0.8); Absolute Neutrophil Count 7.81 10^3/uL (1.2-6.7); Basophils % 0.4; Eosinophils % 0.7; HCT 42.5 % (36.0-46.0); HGB 14.5 g/dL (11.2-15.7); Immature Grans % 0.3; Lymphocytes % 18.1; MCH 30.9 pg (27.0-33.0); MCHC 34.1 % (32.0-36.0); MCV 90 fL (80-95); MPV 9.9 fL (8.0-11.0); Monocytes % 3.7; Neutrophils % 76.8; Platelet Count 224 10^3/uL (130-400); RDW 11.2 % (11.7-14.6); RDW-SD 37.4 fL; WBC 10.17 10^3/uL (4.4-10.8)
[2023-06-04 20:02] LABS: Lactate 0.6 mmol/L (0.6-1.4)
[2023-06-04 20:04] LABS: ESR 4 mm/hr (0-20)
[2023-06-04 20:23] LABS: ALT 17 U/L (14-59); AST 16 U/L (15-37); Albumin 4.5 g/dL (3.4-5.0); Alkaline Phosphatase 54 U/L (46-116); Anion Gap 10.8 mmol/L (3-11); BUN 13 mg/dL (7-18); Bilirubin, Direct 0.1 mg/dL (0.0-0.2); Bilirubin, Total 0.5 mg/dL (0.2-1.0); CO2 26.2 mmol/L (21.0-32.0); CREATININE 0.8 mg/dL (0.55-1.02); Calcium 9.2 mg/dL (8.5-10.1); Chloride 105 mmol/L (98-107); Estimated GFR 108.11 (mL/min/1.73m2); Glucose 97 mg/dL (74-106); Lipase 40 U/L (16-77); Magnesium 1.9 mg/dL (1.8-2.4); Potassium 3.7 mmol/L (3.5-5.1); Sodium 142 mmol/L (136-145)
[2023-06-04] MEDS: Omnipaque 350 MG/ML 100 ML BTL IJ (20:24)
[2023-06-04 20:25] LABS: C-Reactive Protein < 0.50 mg/dL (<or=0.5); Troponin I < 50 ng/L (< or =60)
[2023-06-04] MEDS: Normal Saline - Diluent 50 ML VIAL IJ (20:25)
[2023-06-04] MEDS: Normal Saline Flush 10 ML SYR IVP (20:26)
[2023-06-04 20:31] LABS: INR 1.1 (0.9-1.1); PTT Activated 26.1 sec (23.6-32.8); Prothrombin Time 10.8 sec (9.1-11.1)
[2023-06-04 20:42] LABS: Procalcitonin < 0.1 ng/mL
[2023-06-04 20:45] LABS: Bilirubin Negative (Negative); Blood Negative (Negative); Clarity Clear (Clear); Glucose Negative (Negative); Ketones Negative (Negative); Leukocyte Esterase Negative (Negative); Nitrite Negative (Negative); Urobilinogen 0.2 mg/dL (Up to 0.2)
--- NOTE | 2023-06-04 21:31 | DI.VRAD_ITS ---
PROCEDURE INFORMATION: Exam: CT Abdomen And Pelvis With Contrast Exam date and time: 06/04/2023 8:28 PM Age: 22 years old Clinical indication: Generalized; Patient HX: Diffuse abdominal pain, bloody stools TECHNIQUE: Imaging protocol: Computed tomography of the abdomen and pelvis with contrast. Radiation optimization: All CT scans at this facility use at least one of these dose optimization techniques: automated exposure control; mA and/or kV adjustment per patient size (includes targeted exams where dose is matched to clinical indication); or iterative reconstruction. Contrast material: OMNIPAQUE 350; Contrast volume: 100 ml; Contrast route: INTRAVENOUS (IV); COMPARISON: CR XR ABDOMEN FLAT UPRIGHT 06/25/2019 9:49 PM FINDINGS: Lungs: Lung bases are clear. Liver: Unremarkable. No mass. Gallbladder and bile ducts: Cholelithiasis. No obvious pericholecystic inflammatory stranding. No biliary dilation. Pancreas: Unremarkable. No ductal dilation. Spleen: Unremarkable. No splenomegaly. Adrenal glands: Normal. No mass. Kidneys and ureters: Symmetric renal enhancement without mass. No hydronephrosis. Ureters are normal in course and caliber. Stomach and bowel: Stomach is distended by low-attenuation material without focal gastric mural thickening. No evidence of bowel obstruction. There is mild scattered mural/fold thickening of the small bowel with increased prominence of the mesenteric vasculature. No focal colonic mural thickening. Appendix: No evidence of acute appendicitis. Intraperitoneal space: No free fluid in the abdomen or pelvis. No free air. Vasculature: No abdominal aortic aneurysm or evidence of dissection. Lymph nodes: No pathologically enlarged lymph nodes. Urinary bladder: Mild diffuse thickening of the bladder wall is nonspecific. Reproductive: IUD within the central uterus in expected location. Bones/joints: Unremarkable. No acute fracture. Soft tissues: No focal abnormality. IMPRESSION: 1. Mild scattered mural/fold thickening of the small bowel. Correlate with history/symptoms to suggest acute infectious versus inflammatory enteritis. 2. Cholelithiasis. 3. Mild diffuse thickening of the bladder wall may be related to incomplete distension versus acute cystitis. Correlate with urinalysis. Dictated and Authenticated by: Adryan Erickson MD. Ordering:DARCY Truong MD
[2023-06-04] MEDS: Azithromycin 250 MG TAB 500 MG PO (22:08)
[2023-06-04 22:09] VITALS: BP 117/78; PULSE 78; RESP 18; TEMP 36.8; O2SAT 94
== END 2023-06-04 22:09 | disposition home or self-care (01) ==
PROVIDERS: Emergency Provider Physician Assistant; PCP Nurse Practitioner Family
DX: A09 Infectious gastroenteritis and colitis, unspecified (principal); Z87.891 Personal history of nicotine dependence
CPT/HCPCS: 80053; 80076; 81025; 83690; 84145; 85652; 96361; 96374; 99285; 74177; 81003; 83605; 83735; 84484; 85025; 85610; 85730; 86140; 99284; J2405; J3490

== ENCOUNTER 2023-08-15 10:08 | Outpatient (REF) | payer MEDICAID, SELFPAY | END 2023-08-15 10:09 | disposition home or self-care (01) | LOC: LBN 10:08 | PROVIDERS: Visit Provider Physician Assistant | DX: J02.9 Acute pharyngitis, unspecified (principal) | CPT/HCPCS: 87070 ==

== ENCOUNTER 2023-11-26 09:24 | Emergency (ER) | payer MEDICAID, SELFPAY ==
[2023-11-26 09:26] VITALS: BP 132/77; PULSE 77; RESP 12; TEMP 37; O2SAT 98
--- NOTE | 2023-11-26 09:30 | DI.RAD_ITS ---
Exam(s) XR KNEE LT 3V AP,LAT,HAMIDA EXAM: XR KNEE LT 3V AP,LAT,HAMIDA CLINICAL HISTORY: LEFT KNEE PAIN. TECHNIQUE: 2D digital imaging was performed. COMPARISON: No exams were available for comparison FINDINGS: 3 views No evidence of acute fracture but there is a joint effusion noted. Also evidence of previous ACL sabrina mirza. No joint space narrowing. Bone density normal. No osseous lesions. No osteochondral defects evident. IMPRESSION: Previous ACL surgery. Prominent joint effusion. Suspect internal derangement. If clinically indica timoteo follow-up MRI can be performed for added sensitivity/specificity DATA REPOSITORY: RADIATION DOSE DELIVERED:
--- NOTE | 2023-11-26 11:27 | DI.VRAD_ITS ---
PROCEDURE INFORMATION: Exam: XR Left Knee Exam date and time: 11/26/2023 10:26 AM Age: 23 years old Clinical indication: Pain; Knee; Left TECHNIQUE: Imaging protocol: Radiologic exam of the left knee. Views: 3 views. COMPARISON: CR LEFT KNEE LIMITED 1 OR 2 VIEWS 04/27/2017 11:46 AM FINDINGS: Bones/joints: Large collection in the suprapatellar region may represent hemarthrosis. There is no evidence of acute fracture.There is no evidence of malalignment or dislocation. Soft tissues: Surgical defect in the proximal tibia and distal femur consistent with cruciate ligament repair. IMPRESSION: 1. Surgical defect in the proximal tibia and distal femur consistent with cruciate ligament repair. 2. Large collection in the suprapatellar region may represent hemarthrosis. 3. There is no evidence of acute fracture.There is no evidence of malalignment or dislocation. Dictated and Authenticated by: Adrien Perry MD. Ordering:STEVEN Madden MD
--- NOTE | 2023-11-26 11:55 | W.ED.GENAD ---
Discharge Plan Disposition Patient Disposition: Home Discharge Details Clinical Impression: Acute pain of left knee Primary Care Provider: Ashish Aguilar ED Provider: Levi Lion Home Meds and New Rx's Prescriptions: No Action Kyleena 17.5 mcg/24 hrs (5 yrs) 19.5 mg intrauterine device 1 device intrauterine ONCE Rx Instructions: as a single dose multivitamin 1 EACH capsule 1 ea PO DAILY Discharge Instructions Instructions: Joint Pain Additional Instructions: Use knee immobilizer for stability and comfort Use crutches to help with ambulation. Weightbearing as tolerated Take Motrin and Tylenol as needed for pain Contact Ortho for follow-up and outpatient MRI Referrals: Sav Fitzgerald MD [ [facility] STAFF PHYSICIAN] - [facility] General Date/Time Provider Initiated Documentation: 11/26/23 09:40. Limitations to Documentation: no limitations. Information obtained by: patient. HPI Narrative: 23-year-old female with past medical history of prior left ACL tear S/P repair presents for evaluation of left knee pain. She reports that Monday was an [place] stay with her job and they had outdoor laser tag in the [place] and played kickball. She denies any injuries during the events. And states that she runs regularly without any discomfort, but woke up the next day and noted that her knee was swollen and painful. She denies any fevers or chills, pain not worse with range of motion, but worse with weightbearing and walking. Related Data Home Medications ?Medication ?Instructions ?Recorded ?Confirmed multivitamin 1 ea PO DAILY 03/07/17 11/26/23 levonorgestrel 17.5 mcg/24 hr (up 1 device intrauterine ONCE 04/13/20 11/26/23 to 5 yrs) 19.5mg intrauterine device (Kyleena) Allergies Allergy/AdvReac Type Severity Reaction Status Date / Time No Known Allergies Allergy Verified 11/26/23 09:31 General Stated Complaint: Orthopedic MEERA: 4 Exam Narrative Exam Narrative: Review of Systems: All systems reviewed & are unremarkable except as noted in HPI and below Well-developed, no acute distress NCAT PERRL, normal conjunctiva RRR Unlabored respiratory effort Nondistended abdomen Left knee with effusion noted, surgical scars noted as well, no significant instability. There is pain with palpation anteriorly No rashes or lesions. no focal neurologic deficits Appropriate mood and affect Course Vital Signs Vital signs: Vital Signs Temperature 37.0 C 11/26/23 09:26 Pulse 77 11/26/23 09:26 Respiratory Rate 12 11/26/23 09:26 Blood Pressure 132/77 11/26/23 09:26 Pulse Oximetry 98 11/26/23 09:26 Temperature 37.0 C 11/26/23 09:26 Temperature Source Skin 11/26/23 09:26 Pulse 77 11/26/23 09:26 Respiratory Rate 12 11/26/23 09:26 Respiratory Effort Normal, Non-Labored 11/26/23 09:29 Blood Pressure 132/77 11/26/23 09:26 Blood Pressure Position Sitting 11/26/23 09:26 Pulse Oximetry 98 11/26/23 09:26 Oxygen Delivery Method Room Air 11/26/23 09:26 Oxygen Flow Rate 0 11/26/23 09:26 Pain Level 5 11/26/23 09:29 Medical Decision Making Emergent evaluation of atraumatic left knee pain. Initial differential includes ligamentous injury or disruption, inflammation. No evidence or concern on physical exam for infectious etiology. Patient is active but did have increased stressor 2 days ago that preceded the symptoms. She does have an effusion. No overlying signs of skin change concerning for infection and no significant instability of the knee. X-ray imaging was obtained and this did not reveal an acute bony process. As discussed with the patient, she would likely benefit from an MRI that can be ordered outpatient. I have provided a knee immobilizer and crutches for her to use for comfort. Weightbearing as tolerated. She had her surgery with orthopedic clinic here and I recommended follow-up with them. A referral has been placed for follow-up and she is instructed to contact them to order her outpatient MRI. Recommend Motrin and Tylenol for pain as needed Quality:SDOH Health Related Social Needs: No Data to Display PFSH All Active Problems Acute pain of left knee (Acute) Chronic idiopathic constipation (Acute) Bloody stool (Acute) IUD surveillance (Acute 04/14/20) Kyleena Chronic constipation (Acute) Annual physical exam (Acute) Idiopathic scoliosis (Chronic 01/15/13) Thoracic; 6 degrees Left Migraine (Chronic 01/10/17) Initiated POPs May 2018 Pediatric body mass index (BMI) of 85th percentile to less than 95th percentile for age (Chronic 04/13/17) Primary dysmenorrhea (Chronic 04/11/14) See at [facility]. Treatment with progesterone only contraceptive because of HX of migraines. Routine child health exam (Chronic 01/15/13) Medical History Idiopathic scoliosis Primary dysmenorrhea Left ACL tear Surgical History Repair, ACL (03/13/17) left Family History Mother Healthy adult Grandfather Hearing loss Neoplasm MGF-liver/bone Grandmother Essential hypertension MGM Heart disease MGM- [place] Stroke MGM- stroke Social History Smoking/Tobacco Use Status: Former Tobacco Use Smoking risk assessment performed?: Yes Alcohol Intake: current Alcohol Intake frequency: holidays/special occasions only Drug use: Occasionally Substance use type: does not use and marijuana Adopted: No Caregiver/Support person: No Foster care: No Household members: other Details: college student- home on school breaks Housing: house Communication Needs: None Education Level: college Details: - college freshman Pets and animals: Yes Pets and animals: cat(s) Sexually active: Yes (hasn't gotten to control) Seatbelt use: always Helmet use: Yes Helmet use: always Water heater temp set <120 deg: Yes Fire extinguisher in home: Yes Carbon monox detector in home: Yes Do you feel safe at home: Yes Do you feel safe in your relationship?: Yes Additional Social history: unable to ask d/t lack of privacy Female Reproductive History Menstrual control method: progestin IUCD History History 0 Para Hx # Term Pregnancies Multiple births Hx # Pregnancies Ectopic pregnancies AB induced Hx Number of Living Children AB spontaneous PAWSS Have you Been Recently Intoxicated or Drunk Within the Last 30 days?: No Have you Ever Experienced Previous Episodes of Alcohol Withdrawal?: No Have you ever Experienced Withdrawal Seizures?: No Have you ever Experienced Delirium Tremens(DT)s?: No Have you ever undergone Alcohol Rehabilitation Treatment (i.e, inpt ot outpatient treatment programs)?: No Have you ever Experienced Blackouts?: No Have you ever Combined Alcohol with other Downers within the last 90 days?: No Have you ever Combined Alcohol with any other Substance of Abuse during the last 90 days?: No Positive Blood Alcohol level on Presentation? [PCS.BAL]: No Evidence of Increased Autonomic Activity (i.e. HR>120, tremor, sweating, agitation, nausea)?: No Result: 0
== END 2023-11-26 15:55 | disposition home or self-care (01) ==
PROVIDERS: Emergency Provider Emergency Medicine; PCP Nurse Practitioner Family
DX: M25.562 Pain in left knee (principal); M25.462 Effusion, left knee; Z87.891 Personal history of nicotine dependence
CPT/HCPCS: 73562; 99283

== ENCOUNTER 2023-12-29 00:39 | Outpatient (CLI) | payer MEDICAID, SELFPAY ==
--- NOTE | 2023-12-29 08:00 | DI.MRI_ITS ---
Exam(s) MR LOWER JOINT LT WO EXAM: MR LOWER JOINT LT WO CLINICAL HISTORY: ? MENISCAL TEAR MEDIAL,INTERNAL DERANGEMENT LT KNEE, PAIN,M23.92. TECHNIQUE: Multiplanar multisequence MRI was performed. COMPARISON: MR MRI L LOWER JOINT WO CONT from 01/26/2017 CR,XR XR KNEE LT 3V AP,LAT,HAMIDA from 11/26/2023 FINDINGS: BONES: There is no fracture or contusion pattern. JOINTS: Articular cartilage is unremarkable. No significant joint effusion is present. TENDONS: Extensor mechanism: Unremarkable. Medial retinaculum: Unremarkable. Lateral retinaculum: Unremarkable. Popliteus: Unremarkable. MUSCLES: Unremarkable. MENISCI: There is some blunting of the periphery of the posterior horn of the medial meniscus. This corresponds to the area of the prior tear. This may be postsurgical change versus a retear. The lat eral meniscus is unremarkable. SOFT TISSUES: Unremarkable. LIGAMENTS: Anterior Cruciate: The repaired anterior cruciate ligament is intact. Posterior Cruciate: Unremarkable. Medial Collateral:Unremarkable. Lateral Collateral: Unremarkable. OTHER: IMPRESSION: 1. The repaired anterior cruciate ligament is intact. 2. There is blunting and mild hyperintense signal seen in the posterior horn of the medial meniscus. This corresponds to the area of the prior tear on the prior examination from 2016. This may reflect postsurgical changes versus a retear. DATA REPOSITORY:
== END 2023-12-29 00:59 ==
LOC: DI 00:39
PROVIDERS: PCP Nurse Practitioner Family; Visit Provider Student in an Organized Health Care Education/Training Program
DX: M23.92 Unspecified internal derangement of left knee (principal); Z98.890 Other specified postprocedural states
CPT/HCPCS: 73721

== ENCOUNTER 2024-01-22 10:39 | Outpatient (REF) | payer MEDICAID, SELFPAY ==
--- NOTE | 2024-01-22 10:15 | PAPFT_PTH ---
PATIENT: Darcy Slade LOC: [facility] U#:[id number] AGE/SX: 23/F ROOM: RE01/22/[address]: Cristel Perez NP : 2000 BED: DIS: 01/22/2024 SPEC #: [id number] RECD: 01/22/24 13:17 STATUS: BRIANA REQ #: [id number] PREMA: 01/22/24 10:[address]: Cristel Perez NP DEPT: [facility] Cytology RECD BY: Brittny Pitt ENTERED: 01/22/24 13:18 SP TYPE: PAPFT OTHR DR: Ashish Bowman DNP Tissues: 1 - CX/ENDOCX FOR PAP SMEARS Procedures: PAP THIN PREP/[facility] Screening HPV DNA PROBE Comments: [id number] (HPV 16 & 18/45)
== END 2024-01-22 10:40 | disposition home or self-care (01) ==
LOC: LBN 10:39
PROVIDERS: PCP Nurse Practitioner Family; Visit Provider Nurse Practitioner Women's Health
DX: Z12.4 Encounter for screening for malignant neoplasm of cervix (principal)
CPT/HCPCS: 88142; 87624

== ENCOUNTER 2024-03-20 08:12 | Emergency (ER) | payer MEDICAID, SELFPAY ==
[2024-03-20] VITALS (13 sets, daily range): BP systolic 111–150; BP diastolic 42–85; PULSE 61–101; RESP 11–26; TEMP 36.2–36.7; O2SAT 96–99
--- NOTE | 2024-03-20 08:00 | RT.EKG_ITS ---
APPROVED REPORT Exam: Resting ECG Reason for Exam: Chest Pain Patient Location: E HR:81 bpm ECG Measurements Heart Rate 81 AXIS OH 163 P 55 QRSd 82 QRS 42 QT 386 T 45 QTc 449 Conclusion Sinus rhythm...normal P axis, V-rate 60- 99
[2024-03-20 08:34] LABS: Abs Immature Grans 0.01 10^3/uL (0.0-0.06); Absolute Basophil Count 0.04 10^3/uL (0.0-0.2); Absolute Eosinophil Count 0.07 10^3/uL (0.0-0.7); Absolute Lymphocyte Count 2.63 10^3/uL (1.2-3.4); Absolute Monocyte Count 0.38 10^3/uL (0.1-0.8); Absolute Neutrophil Count 2.85 10^3/uL (1.2-6.7); Basophils % 0.7 %; Eosinophils % 1.2 %; HCT 40.6 % (36.0-46.0); HGB 13.4 g/dL (11.2-15.7); Immature Grans % 0.2 %; MCH 30.5 pg (27.0-33.0); MCV 92 fL (80-95); MPV 9.7 fL (8.0-11.0); Monocytes % 6.4 %; Neutrophils % 47.5 %; Platelet Count 199 10^3/uL (130-400); RDW 11.5 % (11.7-14.6); RDW-SD 39.2 fL; WBC 5.98 10^3/uL (4.4-10.8)
[2024-03-20 08:56] LABS: ALT 22 U/L (14-59); AST 15 U/L (15-37); Albumin 4.1 g/dL (3.4-5.0); Alkaline Phosphatase 61 U/L (46-116); BUN 14 mg/dL (7-18); Bilirubin, Total 0.54 mg/dL (0.2-1.0); CREATININE 0.8 mg/dL (0.55-1.02); Chloride 105 mmol/L (98-107); Estimated GFR 107.44 (mL/min/1.73m2); Glucose 107 mg/dL (74-106); Lipase 39 U/L (<78); Sodium 141 mmol/L (136-145); Total Protein 7.5 g/dL (6.4-8.2)
[2024-03-20 08:57] LABS: Troponin I < 4 ng/L (<or=51)
--- NOTE | 2024-03-20 08:59 | ED.GENADUL_ITS ---
Discharge Plan Disposition Patient Disposition: Home Condition: Stable Discharge Details Clinical Impression: Chest pain, Cholelithiasis Primary Care Provider: Ashish Aguilar ED Provider: Jhonatan Ponce Home Meds and New Rx's Prescriptions: Continued Kyleena 17.5 mcg/24 hrs (5 yrs) 19.5 mg intrauterine device 1 device intrauterine ONCE Rx Instructions: as a single dose multivitamin 1 EACH capsule 1 ea PO DAILY Discharge Instructions Instructions: Chest Pain, Adult ED, Gallstones ED Additional Instructions: Please follow-up with general surgery. Please contact your primary care physician to arrange follow-up. Return to the ER immediately for any worsening or new concerning symptoms. Referrals: [facility] [Provider Group] Ashish Aguilar, [facility] [employer] [Primary Care Provider] - Discharge Data Discharge Date/Time-TO BE ENTERED AT DEPARTURE: 03/20/24 12:47 HPI General Mode of arrival: ambulatory . Date/Time Provider Initiated Documentation: 03/20/24 08:14 . Limitations to Documentation: no limitations . Information obtained by: patient and family . HPI Narrative: 23-year-old female presents with chief complaint of chest pain. Patient notes she woke up with chest discomfort described as a heaviness like someone sitting on her chest. Pain localized to lower retrosternal area centrally. Pain started upon waking this morning. She notes last night she felt well before going to bed with no symptoms. She denies associated shortness of breath. No leg swelling. She denies associated abdominal pain. No nausea vomiting. Pain does seem positional and is worse with sitting up and walking around. Of note, mom states she had similar chest pain with no abdominal pain when she was diagnosed with cholelithiasis and subsequently had cholecystectomy. She also notes patient sibling had history of gallstones. Related Data Home Medications ?Medication ?Instructions ?Recorded ?Confirmed multivitamin 1 ea PO DAILY 03/07/17 03/20/24 levonorgestrel 17.5 mcg/24 hr (up 1 device intrauterine ONCE 04/13/20 03/20/24 to 5 yrs) 19.5mg intrauterine device (Kyleena) Allergies Allergy/AdvReac Type Severity Reaction Status Date / Time No Known Allergies Allergy Verified 03/20/24 08:19 General Stated Complaint: Chest Pain MEERA: 2 Review of Systems All systems reviewed & are unremarkable except as noted in HPI and below Constitutional Constitutional: Denies fever(s) Cardiovascular Cardiovascular: Reports as per HPI Exam Const General: cooperative and no acute distress [facility] Head: normocephalic Mouth: moist mucous membranes Eyes Conjunctivae: normal conjunctivae Sclera: normal sclerae Neck Neck: trachea midline and supple Resp Auscultation: clear to auscultation bilaterally, no rales, no rhonchi and no wheezes Cardio Rate: regular rate and not tachycardic Rhythm: regular rhythm GI Palpation: soft, not firm, no guarding, no masses, not rigid and nontender Skin General skin exam: no rashes or lesions noted Neuro General: patient alert, patient awake, patient oriented x3 and tone normal Extrem General: no calf tenderness and no edema Psych Appearance: grossly normal Mental Status: mental status grossly normal Course Vital Signs Vital signs: Vital Signs Temperature 36.7 C 03/20/24 08:12 Pulse 101 H 03/20/24 08:12 Respiratory Rate 13 03/20/24 08:12 Blood Pressure 150/85 H 03/20/24 08:12 Pulse Oximetry 98 03/20/24 08:12 Temperature 36.7 C 03/20/24 08:12 Temperature Source Oral 03/20/24 08:12 Pulse 96 H 03/20/24 08:17 Pulse 85 03/20/24 08:50 Respiratory Rate 20 03/20/24 08:40 Respiratory Effort Normal, Non-Labored 03/20/24 08:39 Respiratory Depth Normal 03/20/24 08:39 Respiratory Pattern Normal 03/20/24 08:39 Blood Pressure 150/85 H 03/20/24 08:17 Blood Pressure Mean 101 03/20/24 08:17 Blood Pressure Position Sitting 03/20/24 08:12 Pulse Oximetry 96 03/20/24 08:50 Oxygen Delivery Method Room Air 03/20/24 08:12 Oxygen Flow Rate 0 03/20/24 08:12 Pain Level 10 03/20/24 08:39 Lab/Test Results Lab/Test Results: Laboratory Tests Range/Units 03/20/24 08:28 WBC (4.4-10.8) 10^3/uL 5.98 RBC (3.93-5.22) 10^6/uL 4.40 Hgb (11.2-15.7) g/dL 13.4 Hct (36.0-46.0) % 40.6 MCV (80-95) fL 92 MCH (27.0-33.0) pg 30.5 MCHC (32.0-36.0) % 33.0 RDW (11.7-14.6) % 11.5 L Plt Count (130-400) 10^3/uL 199 MPV (8.0-11.0) fL 9.7 Immature Gran % % 0.2 Neutrophils % % 47.5 Lymphocytes % % 44.0 Monocytes % % 6.4 Eosinophils % % 1.2 Basophils % % 0.7 Nucleated RBC % (0.0-0.3) % 0.0 Absolute Neutrophils (1.2-6.7) 10^3/uL 2.85 Absolute Lymphocytes (1.2-3.4) 10^3/uL 2.63 Absolute Monocytes (0.1-0.8) 10^3/uL 0.38 Absolute Eosinophils (0.0-0.7) 10^3/uL 0.07 Absolute Basophils (0.0-0.2) 10^3/uL 0.04 Sodium (136-145) mmol/L 141 Potassium (3.5-5.1) mmol/L 4.0 Chloride (98-107) mmol/L 105 Carbon Dioxide (21.0-32.0) mmol/L 26.0 Anion Gap (3-11) mmol/L 10.0 BUN (7-18) mg/dL 14 Creatinine (0.55-1.02) mg/dL 0.8 Est GFR (CKD-EPI 2020) (mL/min/1.73m2) 107.44 Glucose (74-106) mg/dL 107 H Total Bilirubin (0.2-1.0) mg/dL 0.54 AST (15-37) U/L 15 ALT (14-59) U/L 22 Alkaline Phosphatase (46-116) U/L 61 Troponin I (<or=51) ng/L < 4 Total Protein (6.4-8.2) g/dL 7.5 Albumin (3.4-5.0) g/dL 4.1 Lipase (<78) U/L 39 Medical Decision Making 901??23-year-old female here with retrosternal chest discomfort that started this morning. Patient is saturating well in no respiratory distress. She is tachycardic on arrival with elevated blood pressure. Patient's mom notes she had similar symptoms with cholelithiasis. POCUS performed and demonstrates large gallstone. No pericholecystic fluid. No gallbladder wall thickening appreciated. Concern for atypical presentation of cholelithiasis with biliary colic. Plan to check diagnostic labs including LFTs and lipase. Consider ACS. Patient low risk for pulmonary embolism. EKG was reviewed and interpreted by me: Please report, sinus rhythm 81 bpm, normal axis, no STEMI. Nondiagnostic. 1030 -- Labs reviewed: no leukocytosis, nl LFTs, nl lipase, nl trop x2, nl ddimer. ACS and acute pulmonary embolism have be ruled out. cxr was reviewed and interpreted by radiology: unremarkable I will give pepcid IV. Concern for likely biliary colic. I spoke with Dr. Zhang, he requests formal RUQ ultrasound and will evaluate the patient. -- Ultrasound was reviewed and interpreted by radiology: Single 2 centimeter mobile gallstone noted within the gallbladder. There is no gallbladder wall thickening or biliary dilatation. Dr. Zhang evaluated the patient and recommends discharge and routine outpatien t followup as needed. Usual and customary discharge instructions were reviewed with the patient. Lab Data Lab results reviewed: Yes I reviewed the patient's lab results. Labs: Laboratory Tests Range/Units 03/20/24 03/20/24 08:28 09:21 WBC (4.4-10.8) 10^3/uL 5.98 RBC (3.93-5.22) 10^6/uL 4.40 Hgb (11.2-15.7) g/dL 13.4 Hct (36.0-46.0) % 40.6 MCV (80-95) fL 92 MCH (27.0-33.0) pg 30.5 MCHC (32.0-36.0) % 33.0 RDW (11.7-14.6) % 11.5 L Plt Count (130-400) 10^3/uL 199 MPV (8.0-11.0) fL 9.7 Immature Gran % % 0.2 Neutrophils % % 47.5 Lymphocytes % % 44.0 Monocytes % % 6.4 Eosinophils % % 1.2 Basophils % % 0.7 Nucleated RBC % (0.0-0.3) % 0.0 Absolute Neutrophils (1.2-6.7) 10^3/uL 2.85 Absolute Lymphocytes (1.2-3.4) 10^3/uL 2.63 Absolute Monocytes (0.1-0.8) 10^3/uL 0.38 Absolute Eosinophils (0.0-0.7) 10^3/uL 0.07 Absolute Basophils (0.0-0.2) 10^3/uL 0.04 D-Dimer (<500) ng/mlFEU 216 Sodium (136-145) mmol/L 141 Potassium (3.5-5.1) mmol/L 4.0 Chloride (98-107) mmol/L 105 Carbon Dioxide (21.0-32.0) mmol/L 26.0 Anion Gap (3-11) mmol/L 10.0 BUN (7-18) mg/dL 14 Creatinine (0.55-1.02) mg/dL 0.8 Est GFR (CKD-EPI 2020) (mL/min/1.73m2) 107.44 Glucose (74-106) mg/dL 107 H Calcium (8.5-10.1) mg/dL 9.1 Total Bilirubin (0.2-1.0) mg/dL 0.54 AST (15-37) U/L 15 ALT (14-59) U/L 22 Alkaline Phosphatase (46-116) U/L 61 Troponin I (<or=51) ng/L < 4 < 4 Total Protein (6.4-8.2) g/dL 7.5 Albumin (3.4-5.0) g/dL 4.1 Lipase (<78) U/L 39 Quality:SDOH Health Related Social Needs: No Data to Display PFSH All Active Problems (Updated 03/20/24 @ 12:27 by Jhonatan Ponce MD) Cholelithiasis (Acute) Chest pain (Acute) No-show for appointment (Acute) Upper respiratory infection (Acute) Chronic idiopathic constipation (Acute) IUD surveillance (Acute 04/14/20) Kyleena Idiopathic scoliosis (Chronic 01/15/13) Thoracic; 6 degrees Left Migraine (Chronic 01/10/17) Initiated POPs May 2018 Primary dysmenorrhea (Chronic 04/11/14) See at [facility]. Treatment with progesterone only contraceptive because of HX of migraines. Medical History Chronic constipation Pediatric body mass index (BMI) of 85th percentile to less than 95th percentile for age (04/13/17) Bloody stool Left ACL tear Surgical History Repair, ACL (03/13/17) left Family History Father Adopted Alcohol use disorder Maternal Grandmother Diabetes Hyperlipidemia Hypertension Heart disease Stroke Maternal Grandfather Alcohol use disorder Cancer Paternal Grandmother Alcohol use disorder Paternal Grandfather Alcohol use disorder Social History Smoking/Tobacco Use Status: Current-Occasional Tobacco Type: e-cigarettes Quit status: considering quitting Second Hand Exposure: No Smoking risk assessment performed?: Yes Alcohol Intake: current Alcohol Intake frequency: a few times a month Alcohol type: wine Drug use: Socially Substance use type: marijuana Adopted: No Caregiver/Support person: No Foster care: No Household members: significant other Housing: house Number of Children: 0 number of grandchildren: 0 Communication Needs: None Education Level: college Details: - college freshman Sexually active: Yes (hasn't gotten to control) Do you think of yourself as: straight/heterosexual Current gender identity: female What is your relationship status?: living with partner How often do you talk on the phone with friends or family?: three or more times per week How often do you get together with friends or relatives?: three or more times per week Do you belong to any clubs or organized social groups?: no Panel score (0-1 are the most socially isolated patients): 2 Special antonio needs: No Seatbelt use: always Helmet use: Yes Helmet use: always Drive intox or ride w/intox 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 Water heater temp set <120 deg: Yes Fire extinguisher in home: Yes Carbon monox detector in home: Yes Firearms in home: Yes Firearms unloaded and locked: Yes Do you feel safe at home: Yes Do you feel safe in your relationship?: Yes Victim of physical abuse: No Victim of emotional abuse: No Victim of sexual abuse: No Would you like helpful sources: Yes Female Reproductive History Menstrual control method: progestin IUCD History History 0 Para Hx # Term Pregnancies Multiple births Hx # Pregnancies Ectopic pregnancies AB induced Hx Number of Living Children AB spontaneous PAWSS Have you Been Recently Intoxicated or Drunk Within the Last 30 days?: No Have you Ever Experienced Previous Episodes of Alcohol Withdrawal?: No Have you ever Experienced Withdrawal Seizures?: No Have you ever Experienced Delirium Tremens(DT)s?: No Have you ever undergone Alcohol Rehabilitation Treatment (i.e, inpt ot outpatient treatment programs)?: No Have you ever Experienced Blackouts?: No Have you ever Combined Alcohol with other Downers within the last 90 days?: No Have you ever Combined Alcohol with any other Substance of Abuse during the last 90 days?: No Result: 0 POCUS Exam (ED) Limited Gallbladder Exam DATE OF EXAM: 03/20/24 TIME OF EXAM: 09:04 PROVIDER THAT PERFORMED THE STUDY: Jhonatan Ponce IS THIS A REPEAT EXAM DURING THIS ENCOUNTER: No REASON FOR VISIT: Other chest pain and fam hx VISUALIZED STRUCTURES: Gallbladder PERTINENT FINDINGS/IMPRESSION: Cholelithiasis; No Pericholecystic fluid and No thickening of the gallbladder wall Exam complete
[2024-03-20 09:01] LABS: Calcium 9.1 mg/dL (8.5-10.1)
--- NOTE | 2024-03-20 09:10 | DI.RAD_ITS ---
Exam(s) XR CHEST 2V PA LATERAL EXAM: XR CHEST 2V PA LATERAL CLINICAL HISTORY: chest pain TECHNIQUE: 2D digital imaging was performed. Two views. COMPARISON: CR,XR XR CHEST 2V PA LATERAL from 06/25/2019 FINDINGS: HEART: Normal size. Aorta: Not dilated. PULMONARY VASCULATURE: Normal. MEDIASTINUM: Unremarkable. LUNGS: Clear. PLEURAL SPACE: No pleural effusion or pneumothorax. BONE:Unremarkable for age. SOFT TISSUES: Unremarkable. IMPRESSION: No acute abnormality. DATA REPOSITORY: RADIATION DOSE DELIVERED:
[2024-03-20 09:13] LABS: D-Dimer 216 ng/mlFEU (<500)
[2024-03-20] MEDS: Ibuprofen 600 MG TAB PO (09:23)
[2024-03-20 09:53] LABS: Troponin I < 4 ng/L (<or=51)
--- NOTE | 2024-03-20 10:04 | NUR.NOTE ---
Nursing Note: Access chart to screen shot the status of Ordered and Active.
--- NOTE | 2024-03-20 10:24 | DI.US_ITS ---
Exam(s) US ABDOMEN LIMITED EXAM: US ABDOMEN LIMITED CLINICAL HISTORY: chest pain, +pocus gallstone TECHNIQUE: Ultrasound abdomen performed using standard protocol. COMPARISON: CR XR CHEST 2V PA LATERAL from 03/20/2024 US POCUS EXAM from 03/20/2024 FINDINGS: LIVER: Normal size and echogenicity. No focal liver lesions are seen. GALLBLADDER: 2 centimeter mobile stone noted within the gallbladder lumen. No evidence of wall thick ening. No pericholecystic fluid identified. BOUCHER'S SIGN: Negative. BILIARY SYSTEM: No intrahepatic or extrahepatic biliary ductal dilation. Right KIDNEY: No evidence of renal calculi. No evidence of hydronephrosis. No renal mass or cyst iden tified. PANCREAS: Normal where visualized. ABDOMINAL AORTA AND IVC: Visualized portions normal caliber. ASCITES: None seen. IMPRESSION: Single 2 centimeter mobile gallstone noted within the gallbladder. There is no gallbladder wall thic kening or biliary dilatation. DATA REPOSITORY:
--- NOTE | 2024-03-20 10:25 | SCONE_ITS ---
Date of service: 03/20/24 Time of Service: 10:25 Assessment and Plan Assessment and plan (1) Cholelithiasis: Status: Acute Assessment and plan: 23-year-old woman with vague, nonspecific chest discomfort of unknown etiology in the setting of having an incidental gallstone. Certainly a gallbladder attack could present this way although the scenario and circumstances are somewhat unusual. This was unrelated to eating. It has never happened before. And she woke up with this issue and it is reproducible with certain upper body movements. The gallstone has been present for quite some time and this would be an unusual way for her to present for its first time ever. Imaging is reassuring that there is no cholecystitis. Her lab work is normal. Her abdominal exam is completely benign. I would not recommend cholecystectomy at this time. Just a single, isolated, nonspecific and indeed unusual presentation is not enough to justify surgical intervention on this otherwise incidental finding. I counseled her to assume that this is NOT a gallbladder attack. It is probably musculoskeletal discomfort from some unknown explanation. Costochondritis possibly. If it is her gallbladder, she will have repeated attacks in the future and at some point this should be related to eating and we can reconsider an elective, scheduled cholecystectomy if and when such circumstances arise. No surgical follow-up needed. She can be discharged home. History of Present Illness Narrative: 23-year-old woman presents with chest discomfort that started this morning when she woke up. When she moves or stretches a certain way it is reproducible. She has never had this before. She denies any unusual activities recently but did travel some snow in the last couple of days. She had gallstones seen on CAT scan a while back and then in the emergency department was found to have a gallstone prompting curiosity whether this might have been a gallbladder attack or not. At the bedside she has no abdominal tenderness whatsoever both subjectively or on pressure. She denies any issues with eating. This has never been a problem with eating in the past. She did not eat anything prior to waking up but the problem. PFSH All Active Problems (Updated 03/20/24 @ 12:27 by Jhonatan Ponce MD) Cholelithiasis (Acute) Chest pain (Acute) No-show for appointment (Acute) Upper respiratory infection (Acute) Chronic idiopathic constipation (Acute) IUD surveillance (Acute 04/14/20) Kyleena Idiopathic scoliosis (Chronic 01/15/13) Thoracic; 6 degrees Left Migraine (Chronic 01/10/17) Initiated POPs May 2018 Primary dysmenorrhea (Chronic 04/11/14) See at [facility]. Treatment with progesterone only contraceptive because of HX of migraines. Medical History Chronic constipation Pediatric body mass index (BMI) of 85th percentile to less than 95th percentile for age (04/13/17) Bloody stool Left ACL tear Surgical History Repair, ACL (03/13/17) left Family History Father Adopted Alcohol use disorder Maternal Grandmother Diabetes Hyperlipidemia Hypertension Heart disease Stroke Maternal Grandfather Alcohol use disorder Cancer Paternal Grandmother Alcohol use disorder Paternal Grandfather Alcohol use disorder Social History Smoking/Tobacco Use Status: Current-Occasional Tobacco Type: e-cigarettes Quit status: considering quitting Second Hand Exposure: No Smoking risk assessment performed?: Yes Alcohol Intake: current Alcohol Intake frequency: a few times a month Alcohol type: wine Drug use: Socially Substance use type: marijuana Adopted: No Caregiver/Support person: No Foster care: No Household members: significant other Housing: house Number of Children: 0 number of grandchildren: 0 Communication Needs: None Education Level: college Details: - college freshman Sexually active: Yes (hasn't gotten to control) Do you think of yourself as: straight/heterosexual Current gender identity: female What is your relationship status?: living with partner How often do you talk on the phone with friends or family?: three or more times per week How often do you get together with friends or relatives?: three or more times per week Do you belong to any clubs or organized social groups?: no Panel score (0-1 are the most socially isolated patients): 2 Special antonio needs: No Seatbelt use: always Helmet use: Yes Helmet use: always Drive intox or ride w/intox 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 Water heater temp set <120 deg: Yes Fire extinguisher in home: Yes Carbon monox detector in home: Yes Firearms in home: Yes Firearms unloaded and locked: Yes Do you feel safe at home: Yes Do you feel safe in your relationship?: Yes Victim of physical abuse: No Victim of emotional abuse: No Victim of sexual abuse: No Would you like helpful sources: Yes Female Reproductive History Menstrual control method: progestin IUCD History History 2 0 Para Hx # Term Pregnancies Multiple births Hx # Pregnancies Ectopic pregnancies AB induced Hx Number of Living Children AB spontaneous Exam Narrative Exam Narrative: Gen: Non-toxic, comfortable and interactive Neuro: Alert and oriented x3 Psych: Good mood and affect. Good insight and understanding into condition. Chest: Non-labored breathing, no wheezing, no visible shortness of breath. Heart: Regular Abdomen: Soft, nondistended and nontender. Results Last Vital Signs Temp 98.0 F 03/20/24 08:12 Pulse 61 03/20/24 09:12 Resp 16 03/20/24 09:12 BP 120/64 03/20/24 09:12 Pulse Ox 98 03/20/24 09:12 Labs 03/20/24 08:28 03/20/24 08:28 Labs: Laboratory Results - last 24 hr 03/20/24 03/20/24 08:28 09:21 WBC 5.98 RBC 4.40 Hgb 13.4 Hct 40.6 MCV 92 MCH 30.5 MCHC 33.0 RDW 11.5 L Plt Count 199 MPV 9.7 Immature Gran % 0.2 Neutrophils % 47.5 Lymphocytes % 44.0 Monocytes % 6.4 Eosinophils % 1.2 Basophils % 0.7 Nucleated RBC % 0.0 Absolute Neutrophils 2.85 Absolute Lymphocytes 2.63 Absolute Monocytes 0.38 Absolute Eosinophils 0.07 Absolute Basophils 0.04 D-Dimer 216 Sodium 141 Potassium 4.0 Chloride 105 Carbon Dioxide 26.0 Anion Gap 10.0 BUN 14 Creatinine 0.8 Est GFR (CKD-EPI 2020) 107.44 Glucose 107 H Calcium 9.1 Total Bilirubin 0.54 AST 15 ALT 22 Alkaline Phosphatase 61 Troponin I < 4 < 4 Total Protein 7.5 Albumin 4.1 Lipase 39
[2024-03-20] MEDS: Famotidine 20 MG/2 ML VIAL IVP (10:53)
== END 2024-03-20 12:47 | disposition home or self-care (01) ==
PROVIDERS: Emergency Provider Student in an Organized Health Care Education/Training Program; PCP Nurse Practitioner Family
DX: R07.9 Chest pain, unspecified (principal); K80.20 Calculus of gallbladder without cholecystitis without obstruction; F17.290 Nicotine dependence, other tobacco product, uncomplicated
CPT/HCPCS: 00123; 36415; 76705; 80053; 83690; 93005; 99285; 71046; 84484; 85025; 85379; 93010; 99284

== ENCOUNTER 2024-05-03 16:19 | Outpatient (REF) | payer MEDICAID, SELFPAY ==
[2024-05-03 16:41] LABS: Bilirubin Negative (Negative); Blood Negative (Negative); Clarity Clear (Clear); Glucose Negative (Negative); Ketones Negative (Negative); Leukocyte Esterase Negative (Negative); Nitrite Negative (Negative); Specific Gravity 1.025 (1.005-1.025); Urobilinogen 0.2 mg/dL (Up to 0.2)
== END 2024-05-03 16:20 | disposition home or self-care (01) ==
LOC: LBN 16:19
PROVIDERS: PCP Nurse Practitioner Family; Visit Provider Advanced Practice Midwife
DX: N89.8 Other specified noninflammatory disorders of vagina (principal)
CPT/HCPCS: 81003; 87086; 87480; 87510; 87660